=== PATIENT | male | born 1960 ===

== ENCOUNTER 2017-09-02 12:00 | Inpatient (IN) | payer MEDICAID ==
[~2017-09-02] VITALS: Ht 185.4 cm; Wt 95.3 kg
[2017-09-02] MEDS ORDERED: ACET-2247 PO (12:15)
[2017-09-02] MEDS ORDERED: QUET300T2 PO (12:15)
[2017-09-02] MEDS ORDERED: GABA-531 PO (12:15)
[2017-09-02] MEDS ORDERED: TRAZ-147 PO (12:15)
[2017-09-02] MEDS ORDERED: ESOM20CA31 PO (12:15)
[2017-09-02] MEDS ORDERED: LEVO25TA9 PO (12:15)
[2017-09-02] MEDS ORDERED: ESCI10TA PO (12:15)
[2017-09-02] MEDS ORDERED: QUET200T PO (12:15)
[2017-09-02] MEDS ORDERED: AMLO-511 PO (12:15)
[2017-09-02] MEDS ORDERED: CITA20TA9 PO (12:15)
[2017-09-02] MEDS ORDERED: PANT40TA25 PO (12:15)
[2017-09-02 12:19] LABS: BASOPHILS % (AUTO) 0.7 % (0.0-2.0); EOSINOPHILS % (AUTO) 2.3 % (1.0-6.0); HEMATOCRIT 39.5 % (41-53); HEMOGLOBIN 13.4 g/dL (13.5-17.5); LYMPHOCYTES # (AUTO) 1.5 K/uL (1.0-4.8); LYMPHOCYTES % (AUTO) 19.9 % (22.0-44.0); MEAN CORPUSCULAR HEMOGLOBIN 31.6 pg (26.0-34.0); MEAN CORPUSCULAR HGB CONC 33.9 G/dL (31.0-37.0); MEAN CORPUSCULAR VOLUME 93 fL (80-100); MONOCYTES # (AUTO) 0.6 K/uL (0.1-1.0); MONOCYTES % (AUTO) 7.4 % (2.0-9.0); NEUTROPHILS # (AUTO) 5.3 K/uL (1.8-7.7); NEUTROPHILS % (AUTO) 69.7 % (40.0-70.0); PLATELET COUNT (AUTO) 230 K/uL (150-450); RED BLOOD CELL COUNT(AUTO) 4.23 MIL/uL (4.50-5.90); RED CELL DISTRIBUTION WIDTH 14.7 % (11.5-14.5); WHITE BLOOD COUNT (AUTO) 7.6 K/uL (4.5-11.0)
[2017-09-02 12:41] LABS: ANION GAP 5 mmol/L (8-16); CALCIUM, TOTAL 8.7 mg/dL (8.8-10.5); CARBON DIOXIDE 30 mmol/L (22-29); CHLORIDE 104 mmol/L (98-107); CREATININE 0.97 mg/dL (0.60-1.30); GLOMERULAR FILTR. RATE CALC > 60 mL/min (>60); POTASSIUM 4.1 mmol/L (3.5-5.1); SODIUM SERUM 139 mmol/L (136-145); UREA NITROGEN, BLOOD 23 mg/dL (7-18)
[2017-09-02 12:50] LABS: ALANINE AMINOTRANSFERASE 28 U/L (12-78); ALBUMIN 3.6 g/dL (3.4-5.0); ASPARTATE AMINOTRANSFERASE 22 U/L (15-37); BILIRUBIN,TOTAL 0.2 mg/dL (0.1-1.0)
[2017-09-02] MEDS ORDERED: QUEtiapine FUMARATE 100 MG TABLET PO ONE (13:30)
[2017-09-02] MEDS ORDERED: HALOPERIDOL 5 MG TABLET PO PRN (14:30)
[2017-09-02] MEDS ORDERED: ZOLPIDEM TARTRATE 10 MG TABLET PO PRN (14:30)
[2017-09-02 17:55] VITALS: BP 139/75
[2017-09-02] MEDS: LORazepam 2 MG TABLET PO PRN (18:21)
[2017-09-02] MEDS ORDERED: ACETAMINOPHEN 325 MG TABLET PO PRN (19:30)
[2017-09-02] MEDS ORDERED: QUEtiapine FUMARATE 100 MG TABLET PO SCH (21:00)
[2017-09-03 06:12] VITALS: BP 135/70
[2017-09-03] MEDS: LEVOTHYROXINE SODIUM 25 MCG TABLET PO SCH (07:09)
[2017-09-03] MEDS: PANTOPRAZOLE SODIUM 40 MG DR TABLET PO SCH (07:09)
[2017-09-03 08:26] LABS: CHOL/HDL RATIO 3.4 (4.2-7.3)
[2017-09-03] MEDS ORDERED: BACITRACIN 28.4 GM OINTMENT TP PRN (08:30)
[2017-09-03] MEDS ORDERED: ONDANSETRON HCL 4 MG TABLET PO PRN (08:30)
[2017-09-03] MEDS ORDERED: PETROLATUM,WHITE 71 GM JELLY TP PRN (08:30)
[2017-09-03] MEDS ORDERED: ALBUTEROL SULFATE HFA 90 MCG/PUFF 8 GM INHALER IH PRN (08:30)
[2017-09-03] MEDS ORDERED: LOPERAMIDE HCL 2 MG CAPSULE PO PRN (08:30)
[2017-09-03] MEDS ORDERED: MAG HYDROX/AL HYDROX/SIMETH ES 30 ML SUSPENSION UDCUP PO PRN (08:30)
[2017-09-03] MEDS ORDERED: BENZOCAINE/MENTHOL LOZENGE MM PRN (08:30)
[2017-09-03] MEDS ORDERED: MAGNESIUM HYDROXIDE SUSPENSION 30 ML UDCUP PO PRN (08:30)
[2017-09-03] MEDS ORDERED: CloNIDine HCL 0.1 MG TABLET PO PRN (08:30)
[2017-09-03] MEDS: AmLODIPine BESYLATE 5 MG TABLET PO SCH (08:37)
[2017-09-03] MEDS: LORazepam 2 MG TABLET PO PRN (08:38)
[2017-09-03] MEDS: GABAPENTIN 400 MG CAPSULE PO SCH ×3 (08:38→16:29)
[2017-09-03] MEDS: ESCITALOPRAM OXALATE 20 MG TABLET PO SCH (08:38)
[2017-09-03] MEDS: NICOTINE 21 MG/24 HOUR PATCH TD SCH (08:39)
[2017-09-03 09:24] VITALS: BP 152/100
[2017-09-03 10:15] VITALS: BP 124/83
[2017-09-03] MEDS ORDERED: GABAPENTIN 400 MG CAPSULE PO SCH (13:00)
[2017-09-03 16:17] VITALS: BP 147/91
[2017-09-03] MEDS: QUEtiapine FUMARATE 200 MG TABLET PO SCH (16:29)
[2017-09-03] MEDS: TraZODone HCL 100 MG TABLET PO SCH (20:37)
[2017-09-04 03:25] VITALS: BP 138/88
[2017-09-04] MEDS: LEVOTHYROXINE SODIUM 25 MCG TABLET PO SCH (06:31)
[2017-09-04] MEDS: PANTOPRAZOLE SODIUM 40 MG DR TABLET PO SCH (06:31)
[2017-09-04 08:50] VITALS: BP 131/87
[2017-09-04] MEDS ORDERED: ESCITALOPRAM OXALATE 20 MG TABLET PO SCH (09:00)
[2017-09-04] MEDS: NICOTINE 21 MG/24 HOUR PATCH TD SCH (09:03)
[2017-09-04] MEDS: ESCITALOPRAM OXALATE 20 MG TABLET PO SCH (09:04)
[2017-09-04] MEDS: AmLODIPine BESYLATE 5 MG TABLET PO SCH (09:06)
[2017-09-04] MEDS: GABAPENTIN 400 MG CAPSULE PO SCH ×3 (09:08→16:02)
[2017-09-04] MEDS: QUEtiapine FUMARATE 200 MG TABLET PO SCH ×2 (09:08→16:02)
[2017-09-04 16:27] VITALS: BP 118/85
[2017-09-04] MEDS: TraZODone HCL 100 MG TABLET PO SCH (20:08)
[2017-09-05] MEDS: LEVOTHYROXINE SODIUM 25 MCG TABLET PO SCH (06:39)
[2017-09-05] MEDS: PANTOPRAZOLE SODIUM 40 MG DR TABLET PO SCH (06:39)
[2017-09-05] MEDS ORDERED: PNEUMOCOCCAL VACCINE POLYVALENT 0.5 ML VIAL [PPSV23] IM ONE (07:00)
[2017-09-05] MEDS ORDERED: INFLUENZA VIRUS VACCINE QVS 2017-18 (3YR+)/PF 60 MCG/0.5 ML SYRINGE IM ONE (07:00)
[2017-09-05] MEDS: GABAPENTIN 400 MG CAPSULE PO SCH ×3 (08:31→16:42)
[2017-09-05] MEDS: QUEtiapine FUMARATE 200 MG TABLET PO SCH ×2 (08:31→16:42)
[2017-09-05] MEDS: ESCITALOPRAM OXALATE 20 MG TABLET PO SCH (08:31)
[2017-09-05] MEDS: NICOTINE 21 MG/24 HOUR PATCH TD SCH (08:31)
[2017-09-05] MEDS: AmLODIPine BESYLATE 5 MG TABLET PO SCH (08:31)
[2017-09-05 08:37] VITALS: BP 128/84
[2017-09-05 16:52] VITALS: BP 144/77
[2017-09-05] MEDS: TraZODone HCL 100 MG TABLET PO SCH ×2 (19:54→20:05)
[2017-09-05] MEDS: HydrOXYzine PAMOATE 25 MG CAPSULE PO PRN (19:54)
[2017-09-06 04:11] VITALS: BP 135/76
[2017-09-06] MEDS: HydrOXYzine PAMOATE 25 MG CAPSULE PO PRN (04:15)
[2017-09-06] MEDS: LEVOTHYROXINE SODIUM 25 MCG TABLET PO SCH (06:41)
[2017-09-06] MEDS: PANTOPRAZOLE SODIUM 40 MG DR TABLET PO SCH (06:41)
[2017-09-06] MEDS: NICOTINE 21 MG/24 HOUR PATCH TD SCH (08:49)
[2017-09-06] MEDS: AmLODIPine BESYLATE 5 MG TABLET PO SCH (08:49)
[2017-09-06] MEDS: QUEtiapine FUMARATE 200 MG TABLET PO SCH ×2 (08:49→20:55)
[2017-09-06] MEDS: GABAPENTIN 400 MG CAPSULE PO SCH ×3 (08:49→16:10)
[2017-09-06] MEDS: ESCITALOPRAM OXALATE 20 MG TABLET PO SCH (08:49)
[2017-09-06 09:13] VITALS: BP 124/85
[2017-09-06] MEDS: LORazepam 2 MG TABLET PO PRN ×2 (14:41→19:07)
[2017-09-06] MEDS: QUEtiapine FUMARATE 100 MG TABLET PO SCH (16:10)
[2017-09-06 16:18] VITALS: BP 130/91
[2017-09-06] MEDS: TraZODone HCL 100 MG TABLET PO SCH (20:55)
[2017-09-07 01:34] VITALS: BP 123/87
[2017-09-07] MEDS: LORazepam 2 MG TABLET PO PRN ×4 (04:56→22:32)
[2017-09-07] MEDS: PANTOPRAZOLE SODIUM 40 MG DR TABLET PO SCH (06:46)
[2017-09-07] MEDS: LEVOTHYROXINE SODIUM 25 MCG TABLET PO SCH (06:46)
[2017-09-07 09:22] VITALS: BP 129/100
[2017-09-07] MEDS: GABAPENTIN 400 MG CAPSULE PO SCH ×3 (09:25→16:57)
[2017-09-07] MEDS: AmLODIPine BESYLATE 5 MG TABLET PO SCH (09:25)
[2017-09-07] MEDS: QUEtiapine FUMARATE 100 MG TABLET PO SCH ×2 (09:25→16:57)
[2017-09-07] MEDS: NICOTINE 21 MG/24 HOUR PATCH TD SCH (09:25)
[2017-09-07] MEDS: ESCITALOPRAM OXALATE 20 MG TABLET PO SCH (09:25)
[2017-09-07 17:18] VITALS: BP 130/80
[2017-09-07] MEDS: TraZODone HCL 100 MG TABLET PO SCH (20:15)
[2017-09-07] MEDS: QUEtiapine FUMARATE 200 MG TABLET PO SCH (20:16)
[2017-09-08 00:38] VITALS: BP 121/83
[2017-09-08] MEDS: LORazepam 2 MG TABLET PO PRN ×3 (06:18→18:00)
[2017-09-08] MEDS: LEVOTHYROXINE SODIUM 25 MCG TABLET PO SCH (06:19)
[2017-09-08] MEDS: PANTOPRAZOLE SODIUM 40 MG DR TABLET PO SCH (06:41)
[2017-09-08 09:16] VITALS: BP 132/79
[2017-09-08] MEDS: AmLODIPine BESYLATE 5 MG TABLET PO SCH (10:06)
[2017-09-08] MEDS: NALTREXONE HCL 50 MG TABLET PO SCH (10:06)
[2017-09-08] MEDS: QUEtiapine FUMARATE 100 MG TABLET PO SCH ×2 (10:06→16:07)
[2017-09-08] MEDS: NICOTINE 21 MG/24 HOUR PATCH TD SCH (10:07)
[2017-09-08] MEDS: ESCITALOPRAM OXALATE 20 MG TABLET PO SCH (10:30)
[2017-09-08] MEDS: GABAPENTIN 400 MG CAPSULE PO SCH ×3 (10:30→16:07)
[2017-09-08 16:30] VITALS: BP 131/76
[2017-09-08] MEDS: QUEtiapine FUMARATE 200 MG TABLET PO SCH (20:12)
[2017-09-08] MEDS: PRAZOSIN HCL 1 MG CAPSULE PO SCH (20:13)
[2017-09-08] MEDS: TraZODone HCL 100 MG TABLET PO SCH (20:13)
[2017-09-09] MEDS: LEVOTHYROXINE SODIUM 25 MCG TABLET PO SCH (06:44)
[2017-09-09] MEDS: PANTOPRAZOLE SODIUM 40 MG DR TABLET PO SCH (06:44)
[2017-09-09 06:48] VITALS: BP 145/98
[2017-09-09] MEDS: LORazepam 2 MG TABLET PO PRN ×3 (07:07→21:53)
[2017-09-09 08:40] VITALS: BP 126/84
[2017-09-09] MEDS: ESCITALOPRAM OXALATE 20 MG TABLET PO SCH (09:06)
[2017-09-09] MEDS: NICOTINE 21 MG/24 HOUR PATCH TD SCH (09:06)
[2017-09-09] MEDS: AmLODIPine BESYLATE 5 MG TABLET PO SCH (09:06)
[2017-09-09] MEDS: QUEtiapine FUMARATE 100 MG TABLET PO SCH ×2 (09:06→17:13)
[2017-09-09] MEDS: NALTREXONE HCL 50 MG TABLET PO SCH (09:07)
[2017-09-09] MEDS: GABAPENTIN 400 MG CAPSULE PO SCH ×3 (09:07→17:13)
[2017-09-09 16:30] VITALS: BP 124/82
[2017-09-09] MEDS: QUEtiapine FUMARATE 200 MG TABLET PO SCH (21:18)
[2017-09-09] MEDS: PRAZOSIN HCL 1 MG CAPSULE PO SCH (21:18)
[2017-09-09] MEDS: TraZODone HCL 100 MG TABLET PO SCH (21:18)
[2017-09-10] MEDS: LEVOTHYROXINE SODIUM 25 MCG TABLET PO SCH (06:34)
[2017-09-10] MEDS: PANTOPRAZOLE SODIUM 40 MG DR TABLET PO SCH (06:34)
[2017-09-10 06:35] VITALS: BP 127/88
[2017-09-10] MEDS: ESCITALOPRAM OXALATE 20 MG TABLET PO SCH (08:00)
[2017-09-10] MEDS: QUEtiapine FUMARATE 100 MG TABLET PO SCH ×2 (08:00→16:16)
[2017-09-10] MEDS: AmLODIPine BESYLATE 5 MG TABLET PO SCH (08:00)
[2017-09-10] MEDS: NICOTINE 21 MG/24 HOUR PATCH TD SCH (08:00)
[2017-09-10] MEDS: NALTREXONE HCL 50 MG TABLET PO SCH (08:00)
[2017-09-10] MEDS: GABAPENTIN 400 MG CAPSULE PO SCH ×3 (08:00→16:16)
[2017-09-10] MEDS: LORazepam 2 MG TABLET PO PRN ×2 (09:35→14:04)
[2017-09-10 10:40] VITALS: BP 128/98
[2017-09-10] MEDS ORDERED: LEVO75 PO (13:58)
[2017-09-10] MEDS ORDERED: GABA-533 PO (13:58)
[2017-09-10 16:16] VITALS: BP 130/86
[2017-09-10] MEDS: TraZODone HCL 100 MG TABLET PO SCH (20:07)
[2017-09-10] MEDS: QUEtiapine FUMARATE 300 MG TABLET PO SCH (20:07)
[2017-09-10] MEDS: PRAZOSIN HCL 1 MG CAPSULE PO SCH (20:07)
[2017-09-11 01:48] VITALS: BP 137/94
[2017-09-11] MEDS: PANTOPRAZOLE SODIUM 40 MG DR TABLET PO SCH (06:33)
[2017-09-11] MEDS: LEVOTHYROXINE SODIUM 25 MCG TABLET PO SCH (06:33)
[2017-09-11] MEDS: NALTREXONE HCL 50 MG TABLET PO SCH (08:25)
[2017-09-11] MEDS: QUEtiapine FUMARATE 100 MG TABLET PO SCH ×2 (08:25→16:32)
[2017-09-11] MEDS: AmLODIPine BESYLATE 5 MG TABLET PO SCH (08:25)
[2017-09-11] MEDS: ESCITALOPRAM OXALATE 20 MG TABLET PO SCH (08:25)
[2017-09-11] MEDS: NICOTINE 21 MG/24 HOUR PATCH TD SCH (08:25)
[2017-09-11] MEDS: GABAPENTIN 400 MG CAPSULE PO SCH ×3 (08:25→16:32)
[2017-09-11] MEDS: LORazepam 2 MG TABLET PO PRN ×3 (08:49→23:38)
[2017-09-11 09:58] VITALS: BP 148/84
[2017-09-11 16:37] VITALS: BP 132/86
[2017-09-11] MEDS: QUEtiapine FUMARATE 300 MG TABLET PO SCH (20:17)
[2017-09-11] MEDS: PRAZOSIN HCL 1 MG CAPSULE PO SCH (20:18)
[2017-09-11] MEDS: TraZODone HCL 100 MG TABLET PO SCH (20:18)
[2017-09-12 00:01] VITALS: BP 134/90
[2017-09-12] MEDS: PANTOPRAZOLE SODIUM 40 MG DR TABLET PO SCH (05:59)
[2017-09-12] MEDS: LEVOTHYROXINE SODIUM 25 MCG TABLET PO SCH (05:59)
[2017-09-12] MEDS: NALTREXONE HCL 50 MG TABLET PO SCH (09:41)
[2017-09-12] MEDS: QUEtiapine FUMARATE 100 MG TABLET PO SCH ×2 (09:41→16:02)
[2017-09-12] MEDS: AmLODIPine BESYLATE 5 MG TABLET PO SCH (09:41)
[2017-09-12] MEDS: ESCITALOPRAM OXALATE 20 MG TABLET PO SCH (09:41)
[2017-09-12] MEDS: GABAPENTIN 400 MG CAPSULE PO SCH ×3 (09:41→16:03)
[2017-09-12] MEDS: NICOTINE 21 MG/24 HOUR PATCH TD SCH (09:42)
[2017-09-12 09:43] VITALS: BP 127/90
[2017-09-12] MEDS: LORazepam 2 MG TABLET PO PRN ×2 (10:33→16:04)
[2017-09-12 16:21] VITALS: BP 136/87
[2017-09-12] MEDS: QUEtiapine FUMARATE 300 MG TABLET PO SCH (20:27)
[2017-09-12] MEDS: TraZODone HCL 100 MG TABLET PO SCH (20:27)
[2017-09-12] MEDS: PRAZOSIN HCL 1 MG CAPSULE PO SCH (20:27)
[2017-09-13 00:10] VITALS: BP 125/86
[2017-09-13] MEDS: PANTOPRAZOLE SODIUM 40 MG DR TABLET PO SCH (06:37)
[2017-09-13] MEDS: LEVOTHYROXINE SODIUM 25 MCG TABLET PO SCH (06:37)
[2017-09-13] MEDS: LORazepam 2 MG TABLET PO PRN (07:20)
[2017-09-13 08:17] VITALS: BP 131/95
[2017-09-13] MEDS: NICOTINE 21 MG/24 HOUR PATCH TD SCH (08:38)
[2017-09-13] MEDS: AmLODIPine BESYLATE 5 MG TABLET PO SCH (08:38)
[2017-09-13] MEDS: NALTREXONE HCL 50 MG TABLET PO SCH (08:38)
[2017-09-13] MEDS: ESCITALOPRAM OXALATE 20 MG TABLET PO SCH (08:38)
[2017-09-13] MEDS: GABAPENTIN 400 MG CAPSULE PO SCH ×2 (08:38→12:18)
[2017-09-13] MEDS: QUEtiapine FUMARATE 100 MG TABLET PO SCH (08:38)
[2017-09-13] MEDS ORDERED: QUET300T18 PO (13:27)
[2017-09-13] MEDS ORDERED: ESCI20TA36 PO (13:27)
[2017-09-13] MEDS ORDERED: GABA-533 PO (13:27)
[2017-09-13] MEDS ORDERED: NALT50TA PO (13:27)
[2017-09-13] MEDS ORDERED: TRAZ-147 PO (13:27)
[2017-09-13] MEDS ORDERED: QUET100T33 PO (13:27)
[2017-09-13] MEDS ORDERED: PRAZ2CAP2 PO (13:29)
[2017-09-13] MEDS ORDERED: PRAZ2 PO (14:24)
[2017-09-13] MEDS ORDERED: LEVO25TA9 PO (14:24)
[2017-09-13] MEDS ORDERED: PRAZOSIN HCL 1 MG CAPSULE PO SCH (21:00)
== END 2017-09-13 16:14 | disposition home or self-care (01) | DRG 750 ==
LOC: EMS 12:02 → B3A 15:32 → B2S 18:16
PROVIDERS: ADMIT Psychiatry & Neurology Psychiatry; ATTEND Psychiatry & Neurology Psychiatry
PROC: 3E0234Z Introduction of Serum, Toxoid and Vaccine into Muscle, Percutaneous Approach (ICD-10-PCS; principal; 2017-09-05)
DX: F25.1 Schizoaffective disorder, depressive type (principal); R45.851 Suicidal ideations; Z91.14 Patient's other noncompliance with medication regimen; F17.210 Nicotine dependence, cigarettes, uncomplicated; F43.10 Post-traumatic stress disorder, unspecified; F60.3 Borderline personality disorder; G47.00 Insomnia, unspecified; F11.90 Opioid use, unspecified, uncomplicated; F15.90 Other stimulant use, unspecified, uncomplicated; M54.2 Cervicalgia; M54.9 Dorsalgia, unspecified; J44.9 Chronic obstructive pulmonary disease, unspecified; I10 Essential (primary) hypertension; E03.9 Hypothyroidism, unspecified; K21.9 Gastro-esophageal reflux disease without esophagitis; D64.9 Anemia, unspecified; Z59.0 Homelessness; Z23 Encounter for immunization; Z88.0 Allergy status to penicillin; Z91.410 Personal history of adult physical and sexual abuse; Z91.5 Personal history of self-harm; Z98.1 Arthrodesis status; Z88.8 Allergy status to other drugs, medicaments and biological substances; Z91.048 Other nonmedicinal substance allergy status; Z63.9 Problem related to primary support group, unspecified; Z71.6 Tobacco abuse counseling; Z65.3 Problems related to other legal circumstances
CPT/HCPCS: 90471; 99285; 99406; G0480